=== PATIENT | male | born 1990 | race Caucasian/White ===

== ENCOUNTER 2018-09-26 14:05 | Emergency (ER) | payer SELFPAY ==
--- NOTE | 2018-09-26 14:57 | ED ---
HPI Chest Pain - HPI Summary HPI Summary: A 28 y/o male brought in by ambulance presents to [facility] with a chief complaint of CP for one year which worsened at about 09/19/18. His CP is intermittent and he describes it as a heaviness. He rates his pain as 6/10. The patient reports that twice in the past week he woke up with heavy CP and SOB. He also reports nausea and ringing in the ears. At 12:00 09/26/18 he was sitting in his car after eating lunch and he had the previously noted symptoms and felt like he was near syncope. He reports these episodes lasting about 15 min. He also c/o shooting pains in his left leg and arm. 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 He claims that his symptoms have mostly resolved ever since laying back in the ambulance, but he reports still feeling weak. He claims that when these episodes occur he hyperventilates which is an aggravating factor. The patient reports that his LDLs used to be high but has since come down. He denies any relevant FHx of PMHx. - History of Current Complaint Chief Complaint: EDChestPainROMI Time Seen by Provider: 09/26/18 14:27 Hx Obtained From: Patient, Family/[employer] Hand - mother, EMS Onset/Duration: Started Days Ago, Still Present Timing: Intermittent, Lasting Minutes Initial Severity: Moderate Current Severity: Moderate Pain Intensity: 6 Pain Scale Used: 0-10 Numeric Chest Pain Location: Diffuse Chest Pain Radiates: No Character: Heaviness Aggravating Factor(s): Other: - hyperventilating Alleviating Factor(s): Rest Associated Signs and Symptoms: Positive: Recent Stress, Weakness, Shortness of Breath, Nausea - Allergy/Home Medications Allergies/Adverse Reactions: Allergies Allergy/AdvReac Type Severity Reaction Status Date / Time No Known Allergies Allergy Verified 09/26/18 14:12 PMH/Surg Hx/FS Hx/Imm Hx Endocrine/Hematology History: Denies: Hx Diabetes Cardiovascular History: Denies: Hx Coronary Artery Disease, Hx Hypertension Sensory History: Denies: Hx Hearing Problem Infectious Disease History: No Infectious Disease History: Denies: Traveled Outside the [place] in Last 30 Days - Family History Known Family History: Negative: Cardiac Disease, Hypertension, Diabetes - Social History Occupation: Employed Full-time Lives: With Family Review of Systems Positive: Ear Ache - Ear ringing Positive: Chest Pain Positive: Shortness Of Breath Positive: Nausea Positive: Myalgia - shooting pain in legs and arms Positive: Weakness. Negative: Syncope - but felt near syncope Psychological: Other - positive: stressed All Other Systems Reviewed And Are Negative: Yes Physical Exam - Summary Physical Exam Summary: Appearance: The patient is well-nourished in no acute distress and in no acute pain. Skin: The skin is warm and dry and skin color reflects adequate perfusion. HEENT: The head is normocephalic and atraumatic. The pupils are equal and reactive. The conjunctivae are clear and without drainage. Nares are patent and without drainage. Mouth reveals moist mucous membranes and the throat is without erythema and exudate. The external ears are intact. The ear canals are patent and without drainage. The tympanic membranes are intact. Neck: The neck is supple with full range of motion and non-tender. There are no carotid bruits. There is no neck vein distension. Respiratory: Chest is non-tender. Lungs are clear to auscultation and breath sounds are symmetrical and equal. Cardiovascular: Heart is regular rate and rhythm. There is no murmur or rub auscultated. There is no peripheral edema and pulses are symmetrical and equal. Abdomen: The abdomen is soft and non-tender. There are normal bowel sounds heard in all four quadrants and there is no organomegaly palpated. Musculoskeletal: There is no back tenderness noted. Extremities are non-tender with full range of motion. There is good capillary refill. There is no peripheral edema or calf tenderness elicited. Neurological: Patient is alert and oriented to person, place and time. The patient has symmetrical motor strength in all four extremities. Cranial nerves are grossly intact. Deep tendon reflexes are symmetrical and equal in all four extremities. Psychiatric: The patient has an appropriate affect and does not exhibit any anxiety or depression. Triage Information Reviewed: Yes Vital Signs On Initial Exam: Initial Vitals Temp Pulse Resp BP Pulse Ox 99.4 F 74 14 150/90 99 09/26/18 14:09 09/26/18 14:09 09/26/18 14:09/26/18 14:09 09/26/18 14:09 Vital Signs Reviewed: Yes Diagnostics - Vital Signs Vital Signs Temp Pulse Resp BP Pulse Ox 09/26/18 14:09 99.4 F 74 14 150/90 99 - Laboratory Result Diagrams: 09/26/18 15:38 09/26/18 15:38 Lab Statement: Any lab studies that have been ordered have been reviewed, and results considered in the medical decision making process. - Radiology CXR Radiology Interpretation Completed By: Radiologist Summary of Radiographic Findings: No active cardiopulmonary disease is noted. ED physician has reviewed this imaging report. - EKG 14:22 Cardiac Rate: NL - 65 bpm EKG Rhythm: Sinus Rhythm Summary of EKG Findings: Normal sinus rhythm, normal ST, no ectopy, no STEMI. Re-Evaluation - Re-Evaluation First Eval Re-Evaluation Time: 17:05 Change: Improved Comment: Pt is ready for DC. Chest Pain Course/Dx - Course Course Of Treatment: Mr. Bryant has been having episodes of feeling like he was going to blackout accompanied by chest pain periodically for an indeterminate amount of time seemingly months anyway. He was nontoxic in appearance here with stable vital signs. He was kept on the monitor while labs were obtained including a delayed troponin and a d-dimer. I'm not sure her Episodes have been happening but I recommended he get follow-up possibly for a Holter monitor. - Diagnoses Provider Diagnoses: Near syncope Discharge - Sign-Out/Discharge Documenting (check all that apply): Patient Departure - DC - Discharge Plan Condition: Stable Disposition: HOME Forms: *Work Release Referrals: Figueroa Quach MD [Primary Care Provider] - (1 week) Additional Instructions: Follow up with your PCP in 1 week. Return to the ED if you experience any new or worsening symptoms. - Billing Disposition and Condition Condition: STABLE Disposition: Home - Attestation Statements Document Initiated by Antoni: Yes Documenting Scribe: Taj French Provider For Whom Antoni is Documenting (Include Credential): Marlo Mckinney MD Scribe Attestation: I, Taj French, scribed for Marlo Mckinney MD on 09/26/18 at 1903. Scribe Documentation Reviewed: Yes Provider Attestation: The documentation as recorded by the Taj denis accurately reflects the service I personally performed and the decisions made by me, Marlo Mckinney MD Status of Scribe Document: Viewed
[2018-09-26 15:51] LABS: ABS Basophils 0 10^3/ul (0-0.2); ABS Eosinophils 0 10^3/ul (0-0.6); ABS Lymphocytes 1.2 10^3/ul (1.0-4.8); ABS Monocytes 0.3 10^3/ul (0-0.8); ABS Neutrophils 5.3 10^3/ul (1.5-7.7); ABS Nucleated RBC 0 10^3/ul; Eosinophil % 0.5 %; Hematocrit 46 % (42-52); Hemoglobin 16.1 g/dl (14.0-18.0); Mean Corpuscular HGB Conc 35 g/dl (31-36); Mean Corpuscular Hemoglobin 31 pg (27-31); Mean Corpuscular Volume 89 fL (80-94); Mean Platelet Volume 8.4 fL (7.4-10.4); Nucleated Red Blood Cells % 0; Platelet Count 192 10^3/ul (150-450); Red Blood Count 5.18 10^6/ul (4.00-5.40); Red Cell Distribution Width 13 % (10.5-15); White Blood Count 6.8 10^3/ul (3.5-10.8)
[2018-09-26 16:10] LABS: EGFR Non-African American 63.7 (>60)
[2018-09-26 17:27] VITALS: BP 131/69
== END 2018-09-26 17:28 | disposition home or self-care (01) ==
LOC: EDBD → ED 14:05
DX: R55 Syncope and collapse (principal)
CPT/HCPCS: 36415; 71046; 80053; 83605; 84443; 84484; 85025; 85379; 93005; 99282